=== PATIENT | male | born 1955 | race Caucasian/White ===

== ENCOUNTER → 2018-04-03 | Outpatient (CLI) | payer MEDICARE, MEDICAID ==
[~2018-04-03] MED LIST: ABILIFY20 MG PO; ARISTADA441 MG/1.6 IM; ASPIRIN CHEWABL81 M1 PO; ATARAX,VISTARIL50 MG PO; B121000 MCG/1 IM; COUMADIN0.5 MG PO; COZAAR100 MG PO; FLONASE ALLERG9.9 ML NS; KROGER NIC21 MG/24 H T; LOSARTAN POTAS100 MG PO; LOSARTAN POTASS25 M1 PO; METOPROLOL SUCC50 M1 PO; MIRTAZAPINE15 M2 PO; NATURE'S BLEND F1 MG PO; PRILOSEC20 M2 PO; PROSCAR5 M1 PO; PROZAC20 MG PO; PROZAC40 M1 PO; QUETIAPINE FUM100 M3 PO; SIMVASTATIN40 MG PO; TERAZOSIN HCL10 M1 PO; TOPROL XL100 MG PO; TOPROL XL50 M1 PO; TRAZODONE150 MG PO; VISTARIL50 MG PO; VITAMIN D50000 I3 PO; XARE20MG PO; ZOCOR40 MG PO; ZYPREXA20 M1 PO
[2018-04-03 18:26] LABS: BILIRUBIN NEGATIVE (NEGATIVE); BLOOD 3+ (NEGATIVE); CLARITY CLOUDY (CLEAR); COLOR YELLOW (YELLOW); GLUCOSE NEGATIVE (NEGATIVE); KETONE NEGATIVE (NEGATIVE); LEUKO ESTERASE 3+ (NEGATIVE); NITRITE POSITIVE (NEGATIVE); PH 5.5 (5.0-9.0); SPECIFIC GRAVITY 1.025 (1.005-1.030); UROBILINOGEN 0.2 E.U./dl (0.2-1.0)
[2018-04-03 18:32] LABS: WBC TNTC wbc/hpf (0-5)
[2018-04-03 18:38] LABS: BASO % 0.5 % (0.0-1.0); EOS # 0.1 10*3/uL (0.0-0.4); EOS % 1.3 % (1.0-4.0); HEMATOCRIT 43.8 % (42.0-52.0); HEMOGLOBIN 14.6 g/dl (14.0-18.0); LYMPH # 2.2 10*3/uL (1.3-4.4); LYMPH % 25.5 % (27.0-41.0); MEAN CORPUSCULAR HGB CONC 33.3 g/dl (33.0-37.0); MEAN PLATELET VOLUME 9.2 fl (9.6-12.3); MONO # 0.8 10*3/uL (0.1-1.0); NEUT # 5.5 10*3/uL (2.3-7.9); NEUT % 63.4 % (47.0-73.0); PLATELET COUNT AUTOMATED 221 10*3/uL (130-400); RED BLOOD COUNT 4.71 10*6/uL (4.50-5.90); RED CELL DISTRI WIDTH 13.3 % (0-14.5); WHITE BLOOD COUNT 8.7 10*3/uL (4.8-10.8)
[2018-04-03 18:51] LABS: ALBUMIN 3.2 gm/dl (3.1-4.5); ALKALINE PHOSPHATASE 134 U/L (45-117); BUN 18 mg/dl (7-24); CHLORIDE 105 mmol/L (98-107); CHOLESTEROL 195 mg/dL (<200); HDL CHOLESTEROL 31 mg/dl (40-60); LDL CHOLESTEROL 109 mg/dL (9-159); POTASSIUM 4.2 mmol/L (3.5-5.1); SGOT/AST 19 IU/L (3-35); SGPT/ALT 28 U/L (12-78); SODIUM 138 mmol/L (136-145); TOTAL PROTEIN 7.8 gm/dL (6.4-8.2); TRIGLYCERIDES 276 mg/dl (<150); VLDL CHOLESTEROL 55 mg/dL (6-40)
== END | disposition home or self-care (01) ==
LOC: ZRVPFM2 18:03
PROVIDERS: Nurse Practitioner Family
DX: C67.9 Malignant neoplasm of bladder, unspecified (principal); R30.0 Dysuria; I27.9 Pulmonary heart disease, unspecified

== ENCOUNTER → 2018-05-29 | Outpatient (CLI) | payer MEDICARE, MEDICAID ==
[~2018-05-29] MED LIST changes: +LIPITOR20 MG PO; +SYMB160 INH; +TOPROL XL25 MG PO; +Ventolin 02.5 MG/3 M INH; +ZYRTEC10 M3 PO
== END ==
LOC: US 05-12 13:30
DX: I65.23 Occlusion and stenosis of bilateral carotid arteries (principal)

== ENCOUNTER → 2018-07-01 | Outpatient (CLI) | payer MEDICARE, MEDICAID ==
--- NOTE | ~2018-07-01 | ST ---
[place], [place] EXERCISE STRESS TEST REPORT NAME: CHENCHO JOHNSON UNIT #: [id number] ROOM: DOCTOR: JENSEN MARINELLI MD BIRTHDATE: [birth year] DOS: 07/01/2018 PROCEDURE: Lexiscan portion of the Lexiscan Cardiolite. Baseline cardiogram, atrial fibrillation with a controlled ventricular response, 0.4 mg of Lexiscan, duration of 10 seconds. With Lexiscan, the patient did have some shortness of breath, no chest discomfort. Blood pressure and heart rate response were normal. The patient did have some nausea. FINAL IMPRESSION: Indeterminate test secondary due to the underlying atrial fibrillation. No new EKG changes with Lexiscan. No chest pain with Lexiscan. Blood pressure and heart rate responses are normal. Nuclear images will be reported separately. JENSEN MARINELLI MD CM:STRESS:EXERCISE STRESS TEST REPORT [id number] JENSEN MARINELLI MD
== END | disposition home or self-care (01) ==
LOC: CARD 06-10 09:00
DX: I20.9 Angina pectoris, unspecified (principal); R53.81 Other malaise